=== PATIENT | female | born 1985 | race Asian ===

== ENCOUNTER 2021-03-21 10:15 | Outpatient (CLI) | payer OTHER ==
[2021-03-21 16:44] LABS: SARS-CoV-2 PCR by NAA Not Detected (NotDetected)
== END 2021-03-21 10:16 | disposition home or self-care (01) ==
LOC: CSHLAB 10:15
PROVIDERS: ATTEND Obstetrics & Gynecology
DX: Z20.822 Contact with and (suspected) exposure to COVID-19 (principal)
CPT/HCPCS: 87635; U0003; U0005

== ENCOUNTER 2021-03-22 06:10 | Day surgery (SDC) | payer OTHER ==
[2021-03-22] MEDS ORDERED: Lidocaine 1% MPF 2 ML VIAL ONE (06:47)
[2021-03-22] MEDS ORDERED: Fentanyl 100 MCG/2 ML VIAL ONE (07:38)
[2021-03-22] MEDS ORDERED: Lidocaine 1% PF 5 ML VIAL ONE (07:38)
[2021-03-22] MEDS ORDERED: PROPOFOL 20 ML ONE (07:38)
[2021-03-22] MEDS ORDERED: Dexamethasone 20 MG/5 ML VIAL ONE (08:06)
[2021-03-22] MEDS ORDERED: Oxytocin 10 UNITS/ML VIAL ONE (08:19)
[2021-03-22] MEDS ORDERED: Ondansetron PF 4 MG/2 ML Vial ONE (08:22)
[2021-03-22] MEDS ORDERED: Ketorolac Tromethamine 15 MG/ML VIAL ONE (08:23)
[2021-03-22 09:08] LABS: #Eosinphils 0.1 10x3/uL (0.0-0.5); #Monocytes 0.3 10x3/uL (0.0-1.1); #Neutrophils 2.6 10x3/uL (1.5-8.4); %Basophils 0.6 % (0.0-2.0); %Eosinophils 2.8 % (0.0-6.0); %Neutrophils 52.4 % (40.0-75.0); Hemoglobin 13.7 g/dL (12.0-15.5); Mean Corpuscular HGB CONC 33.6 g/dL (32.0-36.0); Mean Corpuscular Hemoglobin 30.5 pg (27.0-33.0); Mean Corpuscular Volume 90.9 fl (81.6-98.3); Mean Platelet Volume 8.7 fl (7.4-10.4); Platelet Count 285 10x3/uL (150-450); RBC Distribution Width 13.6 % (11.5-14.5); Red Blood Cell (RBC) Count 4.49 10x6/uL (3.90-5.03)
== END 2021-03-22 10:00 | disposition home or self-care (01) ==
LOC: CSHSDC 06:10
PROVIDERS: ATTEND Obstetrics & Gynecology
PROC: 10D17ZZ Extraction of Products of Conception, Retained, Via Natural or Artificial Opening (ICD-10-PCS; principal; 2021-03-22)
DX: O02.1 Missed abortion (principal)
CPT/HCPCS: 36415; 85025; 86850; 86900; 86901; 87635; 88305; J1100; J1885; J2405; J2704; J3010; U0003; U0005